=== PATIENT | male | born 1985 | race Caucasian/White ===

== ENCOUNTER 2023-06-26 07:45 | Emergency (ER) | payer OTHER ==
[~2023-06-26] VITALS: Ht 180.3 cm; Wt 108.9 kg
[2023-06-26] MEDS: TRIAMCINOLONE ACETONIDE 40 MG/ML 1ML VIAL IM ONE (08:13)
[2023-06-26] MEDS: KETOROLAC 30MG VIAL (30MG/ML) IM ONE (08:13)
[2023-06-26] MEDS ORDERED: PRED5TAB PO (08:35)
[2023-06-26] MEDS ORDERED: NAPR-1023 PO (08:35)
[2023-06-26] MEDS: ONDANSETRON ODT 4MG TAB SL ONE (08:53)
[2023-06-26 09:20] VITALS: BP 136/85; PULSE 90; RESP 18; O2SAT 99
== END 2023-06-26 09:22 | disposition home or self-care (01) ==
LOC: EDH 07:45
DX: M10.9 Gout, unspecified (principal); Z90.49 Acquired absence of other specified parts of digestive tract; Z88.5 Allergy status to narcotic agent; Z91.148 Patient's other noncompliance with medication regimen for other reason
CPT/HCPCS: 99284; 96372 ×2; J3301; J1885